=== PATIENT | female | born 1965 | race Caucasian/White ===

== ENCOUNTER 2018-06-12 08:56 | Emergency (ER) | payer OTHER ==
[~2018-06-12] VITALS: Ht 149.9 cm; Wt 77.1 kg
[~2018-06-12 08:56] MED LIST: AMBIEN10 MG PO; AVAPRO300 MG PO; CELEXA10 MG PO; DICY20TA PO; LOSARTAN POTAS100 MG; LOSARTAN POTASS50 MG PO; NORVASC10 MG PO; OLEPTRO ER150 MG PO; PANADOL EXTRA500 MG PO; TOPROL XL50 M1 PO; ZOLOFT50 MG PO; [UNRECOGNIZED DRUG - OTHER]
[2018-06-12] MEDS ORDERED: CELEXA PO (09:09)
== END 2018-06-12 13:58 | disposition home or self-care (01) ==
LOC: ER 08:56
DX: N20.0 Calculus of kidney (principal); I10 Essential (primary) hypertension; R10.31 Right lower quadrant pain

== ENCOUNTER 2018-06-21 09:38 | Outpatient (CLI) | payer OTHER ==
[~2018-06-21 09:38] MED LIST changes: +CELEXA PO
[2018-06-23] MEDS ORDERED: CELEXA PO (11:53)
[2018-06-23] MEDS ORDERED: TORADOL60 MG IM (11:54)
[2018-06-23] MEDS ORDERED: TAMS0.4C PO (11:54)
[2018-06-23] MEDS ORDERED: NORVASC5 MG PO (11:54)
[2018-06-23] MEDS ORDERED: PERCOCET 10-321 EACH PO (11:55)
== END 2018-06-21 09:44 | disposition home or self-care (01) ==
LOC: RAD 09:38
DX: N20.0 Calculus of kidney (principal)

== ENCOUNTER → 2018-06-28 | Day surgery (SDC) | payer OTHER ==
[~2018-06-28] MED LIST changes: +MACROBID 100 M100 MG; +NORVASC5 MG PO; +PERCOCET 10-321 EACH PO; +PHENAZOPYRIDIN100 MG; +TAMS0.4C PO; +TORADOL60 MG IM
== END | disposition home or self-care (01) ==
LOC: ADM 06-23 10:00 → CIR.AMB 10:00
DX: N20.0 Calculus of kidney (principal)

== ENCOUNTER 2018-07-05 09:44 | Inpatient (IN) | payer OTHER ==
[~2018-07-05] VITALS: Ht 149.9 cm; Wt 77.1 kg
[~2018-07-05 09:44] MED LIST changes: -MACROBID 100 M100 MG; -PHENAZOPYRIDIN100 MG
[2018-07-05] MEDS ORDERED: PHENAZOPYRIDIN100 MG (10:13)
[2018-07-05] MEDS ORDERED: MACROBID 100 M100 MG (10:13)
--- NOTE | 2018-07-05 10:13 | NUR ---
SE RECIBE PACIENTE CON DOLOR DE FLANKO DERECHA HACE GHAZAL SEMANA. PACIENTE REFIERE QUE OROURKE TENIDO UN PROCEDIMIENTO PARA ROMPER PIEDRAS EN LOS RINONES HACE GHAZAL SEMANA.
--- NOTE | 2018-07-05 10:53 | NUR ---
SE RECIBE PTE FEMENINA DE 53 YRS ALERTA CONCIENTE Y TRANQUILA EN COMPANIA DE FAMILIAR, PTE ES EVALUADA POR EL QUIEN ORDENA TRATAMIENTO LA CUAL SE EJECUTA. SE MANTIENE BAJO OBVSERVACION POR CAMBIOS.
[2018-07-06] MEDS ORDERED: CELEXA10 MG PO (15:37)
== END 2018-07-11 14:36 | disposition home or self-care (01) | DRG 694 ==
LOC: ER 09:44 → SURH 12:53
PROVIDERS: ADMIT Urology
PROC: BW21ZZZ Computerized Tomography (CT Scan) of Abdomen and Pelvis (ICD-10-PCS; principal; 2018-07-05)
DX: N13.2 Hydronephrosis with renal and ureteral calculous obstruction (principal); E86.0 Dehydration; K59.09 Other constipation

== ENCOUNTER 2018-08-27 11:31 | Emergency (ER) | payer OTHER ==
[~2018-08-27] VITALS: Ht 149.9 cm; Wt 72.6 kg
[~2018-08-27 11:31] MED LIST changes: +MACROBID 100 M100 MG; +PHENAZOPYRIDIN100 MG
[2018-08-27] MEDS ORDERED: ATACAND32 MG PO (11:59)
== END 2018-08-28 08:34 | disposition home or self-care (01) ==
LOC: ER 11:31
DX: B96.0 Mycoplasma pneumoniae [M. pneumoniae] as the cause of diseases classified elsewhere (principal)

== ENCOUNTER 2018-09-03 09:49 | Emergency (ER) | payer OTHER ==
[~2018-09-03] VITALS: Ht 149.9 cm; Wt 74.8 kg
[~2018-09-03 09:49] MED LIST changes: +ATACAND32 MG PO
[2018-09-03] MEDS ORDERED: CELEXA20 MG (10:00)
== END 2018-09-03 14:30 | disposition home or self-care (01) ==
LOC: ER 09:49
DX: J22 Unspecified acute lower respiratory infection (principal)

== ENCOUNTER 2019-03-18 17:53 | Emergency (ER) | payer OTHER ==
[~2019-03-18] VITALS: Ht 149.9 cm; Wt 76.2 kg
[~2019-03-18 17:53] MED LIST changes: +CELEXA20 MG
[2019-03-18] MEDS ORDERED: LAMICTAL100 MG (18:25)
[2019-03-18] MEDS ORDERED: MEDROLPACK PO (22:17)
[2019-03-18] MEDS ORDERED: ZITHROMAX500 MG PO (22:17)
[2019-03-18] MEDS ORDERED: TESSALON PERLE100 M1 PO (22:17)
[2019-03-18] MEDS ORDERED: TUSNEL LIQUID178 ML PO (22:17)
== END 2019-03-18 22:27 | disposition home or self-care (01) ==
LOC: ER 17:53
DX: J20.9 Acute bronchitis, unspecified (principal)

== ENCOUNTER 2019-03-24 17:40 | Emergency (ER) | payer OTHER ==
[~2019-03-24] VITALS: Ht 149.9 cm; Wt 76.2 kg
[~2019-03-24 17:40] MED LIST changes: +LAMICTAL100 MG; +MEDROLPACK PO; +TESSALON PERLE100 M1 PO; +TUSNEL LIQUID178 ML PO; +ZITHROMAX500 MG PO
[2019-03-24] MEDS ORDERED: NORVASC5 MG PO (20:46)
== END 2019-03-24 21:10 | disposition home or self-care (01) ==
LOC: ER 17:40
DX: I16.0 Hypertensive urgency (principal); I10 Essential (primary) hypertension

== ENCOUNTER → 2019-05-13 | Outpatient (CLI) | payer OTHER | END | disposition home or self-care (01) | LOC: NUCLEAR 07:57 | DX: I10 Essential (primary) hypertension (principal); R94.31 Abnormal electrocardiogram [ECG] [EKG] | CPT/HCPCS: A9500; 93017; 78452 ==

== ENCOUNTER 2019-11-02 15:04 | Emergency (ER) | payer OTHER ==
[~2019-11-02] VITALS: Ht 149.9 cm; Wt 74.4 kg
== END 2019-11-02 18:17 | disposition home or self-care (01) ==
LOC: ER 15:04
DX: T67.09XA Other heatstroke and sunstroke, initial encounter (principal); R00.2 Palpitations; X50.0XXA Overexertion from strenuous movement or load, initial encounter; Y93.B9 Activity, other involving muscle strengthening exercises; Y92.89 Other specified places as the place of occurrence of the external cause; Y99.8 Other external cause status; M62.82 Rhabdomyolysis

== ENCOUNTER 2020-07-16 13:17 | Emergency (ER) | payer OTHER ==
[~2020-07-16] VITALS: Ht 149.9 cm; Wt 72.6 kg
[2020-07-16] MEDS ORDERED: WELLBUTRIN SR100 MG PO (13:36)
== END 2020-07-16 15:33 | disposition home or self-care (01) ==
LOC: ER 13:17
DX: I16.0 Hypertensive urgency (principal); I10 Essential (primary) hypertension

== ENCOUNTER 2021-01-10 07:33 | Outpatient (CLI) | payer OTHER ==
[~2021-01-10 07:33] MED LIST changes: +WELLBUTRIN SR100 MG PO
== END 2021-01-10 07:37 | disposition home or self-care (01) ==
LOC: NUCLEAR 07:33
PROVIDERS: ATTEND Internal Medicine Cardiovascular Disease
DX: E20.9 Hypoparathyroidism, unspecified (principal)
CPT/HCPCS: 78070; A9500

== ENCOUNTER → 2021-04-02 | Emergency (ER) | payer OTHER ==
[~2021-04-02] VITALS: Ht 149.9 cm; Wt 68.0 kg
== END | disposition home or self-care (01) ==
LOC: ER 15:40
DX: I16.1 Hypertensive emergency (principal); I10 Essential (primary) hypertension

== ENCOUNTER 2023-05-11 11:14 | Outpatient (CLI) | payer OTHER | END 2023-05-11 11:20 | disposition home or self-care (01) | LOC: RAD 11:14 | PROVIDERS: ATTEND Internal Medicine Cardiovascular Disease | DX: J44.9 Chronic obstructive pulmonary disease, unspecified (principal) ==

== ENCOUNTER 2024-06-28 08:22 | Outpatient (CLI) | payer OTHER | END 2024-06-28 08:32 | disposition home or self-care (01) | LOC: RAD 08:22 | PROVIDERS: ATTEND Orthopaedic Surgery | DX: S92.512A Displaced fracture of proximal phalanx of left lesser toe(s), initial encounter for closed fracture (principal) ==

== ENCOUNTER 2025-03-02 16:35 | Outpatient (CLI) | payer OTHER | END 2025-03-02 16:44 | disposition home or self-care (01) | LOC: RAD 16:35 | PROVIDERS: ATTEND Obstetrics & Gynecology Obstetrics | DX: M99.01 Segmental and somatic dysfunction of cervical region (principal); M99.02 Segmental and somatic dysfunction of thoracic region; M99.03 Segmental and somatic dysfunction of lumbar region; M99.04 Segmental and somatic dysfunction of sacral region; M99.05 Segmental and somatic dysfunction of pelvic region ==